=== PATIENT | female | born 1985 | race Caucasian/White ===

== ENCOUNTER 2018-06-13 06:45 | Outpatient (CLI) | payer BC ==
[2018-06-13 13:55] LABS: Bilirubin Negative (Negative); Blood, Urine Moderate (Negative); Clarity CLEAR (Clear); Glucose, Urine (Dipstick) Negative (Negative); Leukocyte Negative (Negative); Nitrite Negative (Negative); Protein, Urine (Dipstick) Negative (Neg-Trace); Specific Gravity, Urine 1.007 (1.002-1.036); pH, Urine 6.5 (5.0-9.0)
[2018-06-13 13:56] LABS: Hemoglobin 14.4 g/dL (12.0-16.0); Mean Corpuscular HGB CONC 33.1 g/dL (32.0-36.0); Mean Corpuscular Volume 93.5 fL (78.0-98.0); Mean Platelet Volume 7.2 fL (7.4-10.4); Platelet Count 213 thou/uL (130-400); RBC Distribution Width 11.4 % (11.5-14.5); Red Blood Cell (RBC) Count 4.65 mill/uL (4.20-5.40); White Blood Cell (WBC) Count 7.6 thou/uL (4.8-10.8)
[2018-06-13 13:57] LABS: Bacteria/HPF None Seen HPF (None Seen); Hyaline Casts/LPF 0-3 HYALINE CAST LPF (0-3 Hyaline); Pathc Cast-AUWi Flag 0.14 (0-2.49); Squamous Epithelial 0-3 HPF (0-3); WBC/HPF None Seen HPF (0-3)
[2018-06-13 14:03] LABS: BHCG - Serum Negative (NEGATIVE); Pregs Control Background? CLEAR/WHITE (CLR/WHITE); Pregs Control Bar Appear? YES (CONTROL BAR)
== END 2018-06-13 06:46 | disposition home or self-care (01) ==
LOC: LABBT 06:45
PROVIDERS: ATTEND Obstetrics & Gynecology
DX: Z01.812 Encounter for preprocedural laboratory examination (principal); N93.8 Other specified abnormal uterine and vaginal bleeding; N80.0 Endometriosis of uterus
CPT/HCPCS: 81001; 84703; 85027

== ENCOUNTER 2018-06-17 05:53 | Day surgery (SDC) | payer BC ==
[2018-06-13 13:46] VITALS: BMI 36.8
[2018-06-17] MEDS ORDERED: Fentanyl 250 MCG/5 ML VIAL ONE (06:20)
[2018-06-17] MEDS ORDERED: Bupivacaine HCl 0.5%/Epinephrine 1:200,000/PF 30 ml Vial ONE (06:46)
[2018-06-17] MEDS ORDERED: Thrombin 5000 UNITS/5 ML VIAL ONE (06:46)
[2018-06-17] MEDS ORDERED: Calcium Chloride 1 GM/10 ML Abboject SYRINGE ONE (06:46)
[2018-06-17] MEDS ORDERED: Scopolamine 1.5 mg/72 hour Patch ONE (06:50)
[2018-06-17] MEDS ORDERED: Promethazine HCl 25 MG/ML VIAL ONE (07:46)
[2018-06-17] MEDS ORDERED: Promethazine HCl 25 MG/ML VIAL SLOW IVP PRN (10:07)
[2018-06-17] MEDS ORDERED: Promethazine HCl 25 MG/ML VIAL IM PRN (10:07)
[2018-06-17] MEDS ORDERED: Ondansetron HCl/PF 4 MG/2 ML Vial IVP PRN (10:07)
[2018-06-17] MEDS ORDERED: diphenhydrAMINE 25 MG CAP PO PRN (10:20)
[2018-06-17] MEDS ORDERED: Ondansetron PF 4 MG/2 ML Vial IVP PRN (10:20)
[2018-06-17] MEDS ORDERED: Fentanyl 100 MCG/2 ML VIAL ONE ×2 (10:20→10:40)
[2018-06-17] MEDS ORDERED: Simethicone Chewable 80 MG TAB PO PRN (10:20)
[2018-06-17] MEDS ORDERED: Zolpidem Tartrate 5 MG TAB PO PRN (10:20)
[2018-06-17] MEDS ORDERED: Morphine 4 MG/ML VIAL SLOW IVP PRN (10:20)
[2018-06-17] MEDS ORDERED: Bisacodyl 10 MG SUPP PR PRN (10:20)
[2018-06-17] MEDS ORDERED: Acetaminophen 1,000 MG in Premix Bag 1 BAG IVPB SCH (10:30)
[2018-06-17] MEDS: Lactated Ringer's 1,000 ML IV SCH ×3 (11:54→21:49)
[2018-06-17] MEDS: Ketorolac Tromethamine 30 MG/ML VIAL IVP SCH ×2 (13:01→18:00)
[2018-06-17] MEDS: Acetaminophen 1,000 MG in Premix Bag 1 BAG IVPB SCH ×2 (14:34→18:49)
[2018-06-17] MEDS ORDERED: PROPOFOL 200 MG/20 ML VIAL ONE (15:52)
[2018-06-17] MEDS ORDERED: Dexamethasone 20 MG/5 ML VIAL ONE (15:52)
[2018-06-17] MEDS ORDERED: Lidocaine 1% PF 5 ML VIAL ONE (15:52)
[2018-06-17] MEDS ORDERED: Ketorolac Tromethamine 30 MG/ML VIAL ONE (15:52)
[2018-06-17] MEDS ORDERED: Ondansetron PF 4 MG/2 ML Vial ONE (15:52)
[2018-06-17] MEDS ORDERED: Metoclopramide HCl 10 MG/2 ML VIAL ONE (15:52)
[2018-06-17] MEDS ORDERED: Glycopyrrolate 0.2 MG/ML 5 ML SYRINGE ONE (15:52)
[2018-06-17] MEDS ORDERED: ePHEDrine 50 MG/ML VIAL ONE (15:52)
[2018-06-17] MEDS ORDERED: Rocuronium Bromide 10 MG/ML (10ML VIAL) ONE (15:52)
[2018-06-17] MEDS ORDERED: Acetaminophen/Codeine 30-300mg Tablet PO PRN ×2 (23:59)
[2018-06-18 05:05] LABS: Hemoglobin 12.6 g/dL (12.0-16.0); Mean Corpuscular HGB CONC 32.9 g/dL (32.0-36.0); Mean Corpuscular Hemoglobin 31.2 pg (27.0-31.0); Mean Corpuscular Volume 94.9 fL (78.0-98.0); Platelet Count 161 thou/uL (130-400); RBC Distribution Width 11.4 % (11.5-14.5); Red Blood Cell (RBC) Count 4.03 mill/uL (4.20-5.40); White Blood Cell (WBC) Count 7.1 thou/uL (4.8-10.8)
[2018-06-18] MEDS ORDERED: Ibuprofen 800 MG TAB PO SCH (06:00)
[2018-06-18 07:23] VITALS: TEMP 98.9
[2018-06-18 07:33] VITALS: BP 118/58
[2018-06-18] MEDS: Lactated Ringer's 1,000 ML IV SCH (13:43)
--- NOTE | 2018-06-20 10:35 | OP ---
DATE OF PROCEDURE: 06/18/2018 PREOPERATIVE DIAGNOSES: 1. Menorrhagia. 2. Dysmenorrhea. 3. Adenomyosis. 4. Uterine fibroids. 5. Failed endometrial ablation. POSTOPERATIVE DIAGNOSES: 1. Menorrhagia. 2. Dysmenorrhea. 3. Adenomyosis. 4. Uterine fibroids. 5. Failed endometrial ablation. 6. Abdominal pelvic adhesions. PROCEDURES PERFORMED: 1. Extensive lysis of adhesions. 2. Robotic hysterectomy. 3. Bilateral salpingectomy. 4. Autologous hemocyte tissue grafting. 5. Cystoscopy. ANESTHESIA: General endotracheal. FINDINGS: 1. Extensive abdominal pelvic adhesions - omentum to anterior abdominal wall, omentum to uterus, bilateral tubo-ovarian. 2. Enlarged uterus, 12 weeks in size with adenomyosis and multiple fibroids. 3. Normal ovaries. COMPLICATIONS: None. SPECIMENS REMOVED: Cervix and uterus. BLOOD LOSS: 200 mL. DESCRIPTION OF PROCEDURE: After thorough consent and counseling, Ms. Oreilly was taken to the operating room and adequate level of anesthesia was obtained via general endotracheal anesthesia. The patient was placed in Mikie stirrups in low leg position. Pelvic examination under anesthesia was performed. Findings were consistent with that in the clinical setting. The patient was noted to have an enlarged uterus measuring approximately 12 weeks in size. The uterus was mobile and no adnexal masses were noted. There was no fixation or nodularity in the cul-de-sac. Using transvaginal ultrasound in the clinical setting, there were multiple fibroids as well as adenomyosis noted. There were no adnexal masses noted. Following EUA, the patient was prepped and draped in usual sterile fashion for both vaginal and abdominal surgery. Attention was then turned to performing the outlined surgical procedures. A weighted speculum was placed in the vaginal canal, and visualization of the cervix was obtained. Single-tooth tenaculum was placed on the anterior lip of the cervix for traction. The uterus was sounded to 12 cm. A stay ligature of 0 Vicryl was placed on the cervix at the 3 o'clock and 9 o'clock position as a stay ligature. Using [place] dilators, sterile dilatation was performed. The SEGUNDO uterine manipulator was then placed within the endometrial cavity, and the balloon was inflated. The cervical collar was carefully seated around the cervix. The stay ligature was affixed to the manipulator. A Cabral was placed in the bladder, which was draining clear urine. The vaginal balloon was inflated. The speculum was removed. Attention was then turned to performing the laparoscopic portion of surgery. An infraumbilical incision was made, and a Veress needle was placed transabdominally with usual safeguard carried out. Hanging drop water technique was utilized to ensure proper placement of a Veress needle. Using CO2 gas as an insufflation medium and the auto insufflator, an adequate pneumoperitoneum was obtained. A 12-mm trocar and sleeve were then carefully placed in the umbilical incision with usual safeguards carried out. The da [employer] laparoscopic camera was then placed transabdominally and visualization of the upper abdomen, the pelvis was obtained. Filmy adhesions were noted from the omentum and the small bowel to the anterior abdominal wall secondary to the patient's history of previous surgeries. Under direct laparoscopic visualization, lateral ports were placed. The bowel was carefully inspected, and there was no evidence of any inadvertent bowel injury upon placing the Veress needle or the umbilical trocar. Using a smaller laparoscopic camera in the lateral port, careful meticulous lysis of adhesions was performed freeing the omentum and filmy adhesions from the bowel. electrosurgical Endoshears were used to perform the lysis of adhesions. Care was taken to avoid thermal injury of the bowel. All surgical sites were carefully inspected and noted to be hemostatic. The bowel and the omentum were returned to their normal anatomic location. Following lysis of adhesions, the patient was docked to the robot per protocol. I assumed my operative position as da [facility] surgical consult, carried out the robotic hysterectomy as outlined. Under direct visualization, robotic instruments were carefully introduced into the abdomen and the pelvis. Instrumentation was used to perform the hysterectomy included the Kleppinger bipolar forceps as well as the electrosurgical Endoshears. The pelvis was carefully elevated out of the pelvis using the manipulator. The uterus was significantly enlarged measuring approximately 12 weeks in size. The uterus was boggy and blanched with findings consistent with adenomyosis. Multiple fibroids were noted. Photodocumentation was performed. The fallopian tube was grasped on the right, crossclamped, coagulated down the mesosalpinx to the level of the tubo-ovarian ligament vessels. The tubo-ovarian ligament vessels were then crossclamped, coagulated, and transected, and the right fallopian tube was removed from the operative field. The same procedure was performed on the left. The ureters were carefully identified bilaterally and noted to be traversing out of the operative planes. The round ligament on the right was then grasped, crossclamped, coagulated, and transected. The vesicouterine peritoneum was taken down anteriorly and inferiorly creating a bladder flap. The uterine-ovarian ligament vessels were then identified, crossclamped, coagulated, and transected bilaterally. Using the same technique, serial pedicles were taken through the broad ligament - cardinal ligament complex down to the level of the uterine vessels. The uterine vessels were skeletonized bilaterally. The uterine vessels were then carefully crossclamped, coagulated, and transected bilaterally. Using the electrosurgical Endoshears, the endopelvic fascia was circumscribed directly over the cervical collar of the manipulator. The bowel was carefully pushed well over the operative planes. Lysis of adhesions was required secondary to the patient's history of previous deliveries. The bowel was carefully removed well over of the operative planes. Once complete, the cervix and uterus were removed from the remainder of the support structures. Once free, the uterus was carefully advanced into the vagina to maintain the pneumoperitoneum. The pelvis was irrigated with a copious amount of warm normal saline. Good hemostasis was noted. The vaginal cuff was then closed with a running locking 0 Vicryl V-Loc suture. Good cuff closure was noted. The pelvis was irrigated with a copious amount of warm normal saline. The ureters were again identified and noted to be traversing lot of the operative planes bilaterally. Good hemostasis was noted. There were also filmy adhesions noted on the descending colon above the pelvic brim down to the level of the left ovary. Careful meticulous lysis of adhesions was performed freeing the descending colon to its normal anatomic location. Because of the extensive dissection and lysis of adhesions, autologous hemocyte tissue grafting was performed. Platelet poor plasma was injected over all surgical sites to prevent further adhesion formation. Once complete, photodocumentation was performed. All pedicles were carefully inspected, noted to be hemostatic. Because of the extensive dissection and size of the uterus, decision was made to proceed with postoperative cystoscopy. The Cabral was carefully removed, and the cystoscope was placed within the bladder. Landmarks for the bladder were identified including the ureteral orifices, the base of the bladder, the trigone and the dome of the bladder. There was no evidence of any inadvertent sutures or injury to the bladder. The patient was given an amp of methylene blue intravenously by the anesthesia team. The ureters were carefully observed until blue dye was noted to be draining from the ureteral orifices bilaterally. The cystoscope was removed from the bladder. The Cabral was replaced. The vaginal cuff was carefully inspected, noted to be hemostatic. A vaginal pack was placed for hemostasis. Once complete, attention was turned to closure of the port sites. The laparoscopic camera was then placed in the lateral port for direct visualization of the umbilical port. The umbilical trocar was removed, and the fascia was closed with a suture passer. Good fascial reapproximation was noted. Once fascial closure of the umbilical port was completed, the trocars were removed. The subcutaneous tissue was closed with interrupted ligatures of 2-0 plain. The skin of each incision was closed with subcuticular stitch of 4-0 Monocryl and dressed with Dermabond. Lap, sponge, and needle counts were correct x3. Estimated blood loss during the surgical procedure was less than 200 mL. The patient was awakened, extubated, and taken to postanesthesia care unit in good condition. Immediately following surgery, the patient and family were made aware of the surgical procedure and operative findings. Questions were answered to their satisfaction. Job ID: [id number]
--- NOTE | 2018-07-06 11:12 | DIS ---
DATE OF ADMISSION: 06/17/2018 DATE OF DISCHARGE: 06/18/2018 PROCEDURES: 1. Extensive lysis of adhesions. 2. Robotic hysterectomy. 3. Bilateral salpingectomy. 4. Autologous hemocyte tissue grafting. 5. Cystoscopy. COMPLICATIONS: None. DISCHARGE INSTRUCTIONS: 1. No heavy lifting greater than 10 to 15 pounds. No driving on pain medications. Pelvic rest x6 weeks. 2. Notify physician for temperature greater than 100.6, heavy vaginal bleeding or discharge, severe abdominal pain or back pain, signs or symptoms of incision infections. 3. Prescriptions: a. Motrin 800 one p.o. q.8 hours p.r.n. cramps. b. Tylenol No. 3 one p.o. q.4 hours pain. 4. Followup visit in 2 weeks. HOSPITAL COURSE IS FOLLOWS: Ms. Juany Oreilly was admitted to [facility] on 06/17/2018, where she underwent an uncomplicated robotic hysterectomy without problems or complications. Her Cabral was discontinued on the night of the first postoperative day. Her vaginal pack was also removed at this time. She was able to ambulate and void without any difficulty. Her diet was advanced slowly. On the morning of the first postoperative day, she was ambulating, voiding, tolerating p.o. well. She had no nausea and vomiting. She had good pain control. She requested discharge home early on the afternoon of postop day #1. She was given the above noted discharge instructions. Prior to discharge, the patient reported she was very satisfied and appreciative of the care she received here at [facility] and will follow up in 2 weeks as scheduled. Job ID: [id number]
== END 2018-06-18 11:45 | disposition home or self-care (01) ==
LOC: SDC 05:53 → 3SE 10:20 → EDSTATUS 13:00 → SDC 06-18 11:45
PROVIDERS: ATTEND Obstetrics & Gynecology
PROC: 0UT94ZZ Resection of Uterus, Percutaneous Endoscopic Approach (ICD-10-PCS; principal; 2018-06-18)
PROC: 0UT74ZZ Resection of Bilateral Fallopian Tubes, Percutaneous Endoscopic Approach (ICD-10-PCS; principal; 2018-06-18)
DX: N83.8 Other noninflammatory disorders of ovary, fallopian tube and broad ligament (principal); N87.9 Dysplasia of cervix uteri, unspecified; N80.0 Endometriosis of uterus; N73.6 Female pelvic peritoneal adhesions (postinfective); Z98.51 Tubal ligation status; Z90.89 Acquired absence of other organs; Z90.49 Acquired absence of other specified parts of digestive tract; Z91.040 Latex allergy status; Z98.890 Other specified postprocedural states; Z79.899 Other long term (current) drug therapy
CPT/HCPCS: 36415; 85027; 88302; 88307; J0131; J0670; J1100; J1885; J2001; J2405; J2550; J2704; J2765; J3010; J3490; Q9968